=== PATIENT | female | born 2000 | race African-American/Black ===

== ENCOUNTER 2022-05-21 13:03 | Inpatient (IN) | payer OTHER ==
[~2022-05-21 13:03] MED LIST: Bupivacaine 0.25% HCL 30 ML VIAL ONE
[2022-05-21] MEDS ORDERED: hydrALAZINE 20 MG/ML VIAL ONE (14:06)
[2022-05-21] MEDS: Lactated Ringer's 1,000 ML IV SCH (14:25)
[2022-05-21] MEDS: Magnesium Sulfate 20 gm/500 ml 20 GM/500 ML BAG ONE ×2 (14:30→19:54)
[2022-05-21 14:38] LABS: Bilirubin Neg (Negative); Blood, Urine Negative (Negative); CAUTI Indications for Culture Pregnancy; Clarity Slightly Cloudy (Clear); Glucose, Urine (Dipstick) Normal (Negative); Ketone, Urine Negative (Negative); Leukocyte 500 (Negative); Nitrite Negative (Negative); Protein, Urine (Dipstick) 30 mg/dl (Neg-Trace); Urobilinogen Normal mg/dL (Less than 2); pH, Urine 6.5 (5.0-9.0)
[2022-05-21] MEDS: Labetalol HCl 100 MG/20 ML VIAL ONE ×2 (14:42→19:54)
[2022-05-21 14:44] VITALS: BMI 25.0
[2022-05-21] MEDS ORDERED: Labetalol HCl 100 MG/20 ML VIAL SLOW IVP PRN ×2 (14:45)
[2022-05-21] MEDS ORDERED: Calcium Gluc 4.6 MEQ/10 ML (100 MG/ML) SLOW IVP PRN (14:45)
[2022-05-21] MEDS ORDERED: Lorazepam 2 MG/ML VIAL SLOW IVP PRN (14:45)
[2022-05-21] MEDS ORDERED: Magnesium 2 GM/50 ML(in water) 4 GM in Premix Bag 1 BAG IVPB SCH ×2 (14:45→15:00)
[2022-05-21 14:53] LABS: Mean Corpuscular HGB CONC 34.8 g/dL (32.0-36.0); Mean Corpuscular Hemoglobin 28.1 pg (27.0-33.0); Mean Corpuscular Volume 80.8 fl (81.6-98.3); Mean Platelet Volume 11.9 fl (7.4-10.4); Platelet Count 191 10x3/uL (150-450); Red Blood Cell (RBC) Count 3.91 10x6/uL (3.90-5.03); White Blood Cell (WBC) Count 6.1 10x3/uL (3.5-10.5)
[2022-05-21 14:59] LABS: Urine Culture Reflex Yes Yes
[2022-05-21 15:04] LABS: Bacteria/HPF 2+ HPF (None Seen)
[2022-05-21 15:07] LABS: ALT (SGPT) 31 U/L (8-55); AST (SGOT) 41 U/L (5-34); Albumin 3.1 g/dL (3.5-5.0); Alkaline Phosphatase 85 U/L (40-100); Anion Gap 9 mmol/L (10-20); BUN (Urea Nitrogen) 5 mg/dL (7.0-18.7); Bilirubin, Total 0.3 mg/dL (0.2-1.2); Calc. Creatinine Clearance 144 mL/min (70-130); Calcium 8.2 mg/dL (7.8-10.44); Carbon Dioxide 22 mmol/L (22-29); Chloride 107 mmol/L (98-107); Estimated GFR 129; Globulin 4.8 g/dL (2.4-3.5); Glucose 60 mg/dL (70-105); Potassium 3.8 mmol/L (3.5-5.1); Protein, Total 7.9 g/dL (6.0-8.3); Sodium 134 mmol/L (136-145)
[2022-05-21] MEDS ORDERED: Magnesium Sulfate 20 gm/500 ml 20 GM/500 ML BAG IVPB SCH ×2 (15:15→16:45)
[2022-05-21] MEDS: Labetalol HCl 100 MG/20 ML VIAL SLOW IVP PRN ×2 (15:30→16:00)
[2022-05-21] MEDS ORDERED: cefTRIAXone\\ROCEPHIN 1 GM in Sodium Chloride 0.9% 100 ML IVPB SCH (16:30)
[2022-05-21] MEDS ORDERED: Ondansetron PF 4 MG/2 ML Vial ONE (16:33)
[2022-05-21] MEDS ORDERED: Ondansetron PF 4 MG/2 ML Vial IVP PRN (16:36)
[2022-05-21] MEDS: Betamet Acet/Betamet Na Ph 30 MG/5 ML VIAL IM SCH (16:57)
[2022-05-21 17:42] LABS: SARS-CoV-2 NAA Rapid Test Not Detected (NotDetected)
[2022-05-21 19:38] LABS: Fetal Membranes Rupture No Membranes Rupture (No Rupture)
[2022-05-21] MEDS: Acetaminophen 325 MG TAB PO PRN (20:24)
[2022-05-21] MEDS ORDERED: NIFEdipine XL 30 MG TAB PO SCH (20:45)
[2022-05-21] MEDS: Famotidine/PF 20 mg/2ml Vial SLOW IVP SCH (21:12)
[2022-05-21] MEDS: hydrALAZINE 20 MG/ML VIAL SLOW IVP PRN (22:10)
[2022-05-21] MEDS ORDERED: NIFEdipine 10 MG CAP PO SCH (23:45)
[2022-05-22] MEDS: Acetaminophen 325 MG TAB PO PRN ×4 (03:53→22:42)
[2022-05-22 05:12] LABS: #Monocytes 0.2 10x3/uL (0.0-1.1); #Neutrophils 6.6 10x3/uL (1.5-8.4); %Basophils 0.1 % (0.0-2.0); %Lymphocytes 8.9 % (18.0-47.0); %Neutrophils 88.5 % (40.0-75.0); Hemoglobin 10.8 g/dL (12.0-15.5); Mean Corpuscular HGB CONC 35.4 g/dL (32.0-36.0); Mean Platelet Volume 11.3 fl (7.4-10.4); Platelet Count 189 10x3/uL (150-450); Red Blood Cell (RBC) Count 3.86 10x6/uL (3.90-5.03); White Blood Cell (WBC) Count 7.4 10x3/uL (3.5-10.5)
[2022-05-22 05:22] LABS: ALT (SGPT) 30 U/L (8-55); AST (SGOT) 34 U/L (5-34); Alkaline Phosphatase 86 U/L (40-100); Anion Gap 12 mmol/L (10-20); BUN (Urea Nitrogen) 5 mg/dL (7.0-18.7); Bilirubin, Total 0.3 mg/dL (0.2-1.2); Calc. Creatinine Clearance 149 mL/min (70-130); Calcium 7.1 mg/dL (7.8-10.44); Carbon Dioxide 16 mmol/L (22-29); Chloride 103 mmol/L (98-107); Estimated GFR 130; Globulin 4.8 g/dL (2.4-3.5); Glucose 119 mg/dL (70-105); Potassium 3.9 mmol/L (3.5-5.1); Protein, Total 7.8 g/dL (6.0-8.3); Sodium 127 mmol/L (136-145)
[2022-05-22 05:25] LABS: Magnesium 5.5 mg/dL (1.7-2.2)
[2022-05-22] MEDS: NIFEdipine 10 MG CAP PO SCH ×2 (09:04→14:39)
[2022-05-22] MEDS: Famotidine/PF 20 mg/2ml Vial SLOW IVP SCH ×2 (09:51→22:39)
[2022-05-22] MEDS: Betamet Acet/Betamet Na Ph 30 MG/5 ML VIAL IM SCH (16:50)
[2022-05-22] MEDS: Lactated Ringer's 1,000 ML IV SCH ×2 (18:58→22:39)
[2022-05-22] MEDS ORDERED: NIFEdipine XL 30 MG TAB PO SCH (19:45)
[2022-05-22] MEDS: hydrALAZINE 20 MG/ML VIAL SLOW IVP PRN (22:33)
[2022-05-22] MEDS ORDERED: Zolpidem Tartrate 5 MG TAB PO PRN (23:10)
[2022-05-23 06:52] LABS: #Monocytes 0.4 10x3/uL (0.0-1.1); #Neutrophils 6.5 10x3/uL (1.5-8.4); %Lymphocytes 7.6 % (18.0-47.0); %Monocytes 5.8 % (0.0-10.0); %Neutrophils 85.9 % (40.0-75.0); Hemoglobin 11.8 g/dL (12.0-15.5); Mean Corpuscular HGB CONC 34.8 g/dL (32.0-36.0); Mean Corpuscular Volume 80.5 fl (81.6-98.3); Mean Platelet Volume 10.8 fl (7.4-10.4); Platelet Count 254 10x3/uL (150-450); RBC Distribution Width 13.3 % (11.5-14.5); Red Blood Cell (RBC) Count 4.21 10x6/uL (3.90-5.03); White Blood Cell (WBC) Count 7.6 10x3/uL (3.5-10.5)
[2022-05-23 07:43] LABS: AST (SGOT) 25 U/L (5-34); Anion Gap 15 mmol/L (10-20); BUN (Urea Nitrogen) 11 mg/dL (7.0-18.7); Calc. Creatinine Clearance 125 mL/min (70-130); Calcium 8.2 mg/dL (7.8-10.44); Carbon Dioxide 17 mmol/L (22-29); Chloride 107 mmol/L (98-107); Estimated GFR 117; Glucose 102 mg/dL (70-105); Potassium 4.8 mmol/L (3.5-5.1); Sodium 134 mmol/L (136-145)
[2022-05-23] MEDS: NIFEdipine XL 30 MG TAB PO SCH (09:11)
[2022-05-23] MEDS: Acetaminophen 325 MG TAB PO PRN (15:30)
[2022-05-23] MEDS: Lactated Ringer's 1,000 ML IV SCH (19:20)
[2022-05-23] MEDS: Famotidine/PF 20 mg/2ml Vial SLOW IVP SCH (19:20)
[2022-05-23] MEDS: Betamet Acet/Betamet Na Ph 30 MG/5 ML VIAL IM SCH (19:20)
[2022-05-24] MEDS: Famotidine/PF 20 mg/2ml Vial SLOW IVP SCH (03:35)
[2022-05-24] MEDS: Lactated Ringer's 1,000 ML IV SCH (03:35)
[2022-05-24] MEDS ORDERED: hydrALAZINE 20 MG/ML VIAL ONE (07:50)
[2022-05-24] MEDS ORDERED: HYDROcodone/Acetaminophen 5/325 mg Tablet PO PRN ×2 (08:53)
[2022-05-24] MEDS ORDERED: Ibuprofen 800 MG TAB PO PRN (08:53)
[2022-05-24] MEDS ORDERED: Lidocaine 1% (PF) 30 ML VIAL SC PRN (08:53)
[2022-05-24] MEDS ORDERED: Lorazepam 2 MG/ML VIAL SLOW IVP PRN (08:55)
[2022-05-24] MEDS ORDERED: Calcium Gluc 4.6 MEQ/10 ML (100 MG/ML) SLOW IVP PRN (08:55)
[2022-05-24] MEDS ORDERED: hydrALAZINE 20 MG/ML VIAL SLOW IVP PRN ×2 (08:55)
[2022-05-24] MEDS ORDERED: Labetalol HCl 100 MG/20 ML VIAL SLOW IVP PRN (08:55)
[2022-05-24] MEDS ORDERED: NS w/ Oxytocin 30 units 500 ML IV SCH ×2 (09:00)
[2022-05-24] MEDS ORDERED: Penicillin G Potassium 5 MILL.UNITS in Sodium Chloride 0.9% 100 ML IVPB SCH (09:00)
[2022-05-24] MEDS ORDERED: Misoprostol 100 MCG TAB ONE (09:26)
[2022-05-24] MEDS: NIFEdipine XL 30 MG TAB PO SCH (09:33)
[2022-05-24] MEDS: Magnesium Sulfate 20 gm/500 ml 20 GM/500 ML BAG ONE ×2 (09:42→18:42)
[2022-05-24] MEDS: Misoprostol 100 MCG TAB VAG SCH ×2 (09:42→19:54)
[2022-05-24 10:05] LABS: #Monocytes 0.5 10x3/uL (0.0-1.1); #Neutrophils 4.8 10x3/uL (1.5-8.4); %Basophils 0.2 % (0.0-2.0); %Lymphocytes 19.4 % (18.0-47.0); %Monocytes 6.9 % (0.0-10.0); %Neutrophils 73.2 % (40.0-75.0); Hemoglobin 13.3 g/dL (12.0-15.5); Mean Corpuscular HGB CONC 34.4 g/dL (32.0-36.0); Mean Corpuscular Hemoglobin 27.8 pg (27.0-33.0); Mean Corpuscular Volume 80.8 fl (81.6-98.3); Mean Platelet Volume 10.5 fl (7.4-10.4); Platelet Count 311 10x3/uL (150-450); RBC Distribution Width 13.2 % (11.5-14.5); Red Blood Cell (RBC) Count 4.79 10x6/uL (3.90-5.03); White Blood Cell (WBC) Count 6.5 10x3/uL (3.5-10.5)
[2022-05-24 10:22] LABS: ALT (SGPT) 26 U/L (8-55); AST (SGOT) 33 U/L (5-34); Albumin 3.5 g/dL (3.5-5.0); Alkaline Phosphatase 96 U/L (40-100); Anion Gap 12 mmol/L (10-20); BUN (Urea Nitrogen) 13 mg/dL (7.0-18.7); Bilirubin, Total 0.3 mg/dL (0.2-1.2); Calc. Creatinine Clearance 136 mL/min (70-130); Calcium 8.9 mg/dL (7.8-10.44); Carbon Dioxide 18 mmol/L (22-29); Chloride 106 mmol/L (98-107); Estimated GFR 127; Globulin 5.5 g/dL (2.4-3.5); Glucose 99 mg/dL (70-105); Potassium 4.4 mmol/L (3.5-5.1); Sodium 132 mmol/L (136-145)
[2022-05-24] MEDS: Labetalol HCl 100 MG/20 ML VIAL SLOW IVP PRN (14:08)
[2022-05-24] MEDS: Acetaminophen 325 MG TAB PO PRN (18:14)
[2022-05-24] MEDS ORDERED: Magnesium Sulfate 20 gm/500 ml 20 GM/500 ML BAG ONE (18:39)
[2022-05-24] MEDS ORDERED: Penicillin G Potassium 5 MILL.UNITS VIAL ONE (19:27)
[2022-05-25] MEDS: Misoprostol 100 MCG TAB VAG SCH (00:06)
[2022-05-25] MEDS: Penicillin G 2.5 MILL.units 2.5 MILL.UNITS in Premix Bag 1 BAG IVPB SCH ×3 (00:16→09:11)
[2022-05-25] MEDS: Acetaminophen 325 MG TAB PO PRN (00:27)
[2022-05-25] MEDS: Lactated Ringer's 1,000 ML IV SCH ×2 (02:37→22:47)
[2022-05-25] MEDS ORDERED: Magnesium Sulfate 20 gm/500 ml 20 GM/500 ML BAG ONE (04:45)
[2022-05-25] MEDS: NIFEdipine XL 30 MG TAB PO SCH (08:57)
[2022-05-25] MEDS: Labetalol HCl 100 MG/20 ML VIAL SLOW IVP PRN (09:12)
[2022-05-25] MEDS ORDERED: Fentanyl 2 mcg/Bup 0.1% Cadd 100 ML ONE (10:27)
[2022-05-25] MEDS ORDERED: Tranexamic Acid 1,000 MG/10 ML VIAL ONE (12:06)
[2022-05-25] MEDS ORDERED: Misoprostol 200 MCG TAB ONE (12:07)
[2022-05-25] MEDS ORDERED: Lactated Ringer's 500 ML IV PRN (12:24)
[2022-05-25] MEDS ORDERED: diphenhydrAMINE 50 MG/ML VIAL IVP PRN (12:24)
[2022-05-25] MEDS ORDERED: Promethazine HCl 25 MG/ML VIAL IM PRN (12:24)
[2022-05-25] MEDS ORDERED: Ondansetron PF 4 MG/2 ML Vial IVP PRN ×2 (12:24→12:59)
[2022-05-25] MEDS ORDERED: Moisturizing Cream (Eucerin) 113 GM JAR TOP PRN (12:24)
[2022-05-25] MEDS ORDERED: Naloxone HCl 0.4 mg/ml Vial IVP PRN ×2 (12:24)
[2022-05-25] MEDS ORDERED: ePHEDrine Sulfate 50 MG/10 ML VIAL SLOW IVP PRN (12:24)
[2022-05-25] MEDS ORDERED: Acetaminophen 325 MG TAB PO PRN (12:24)
[2022-05-25] MEDS ORDERED: Fentanyl 2 mcg/Bupivacaine 0.1% Cassette 100 ML EPIDURAL SCH (12:30)
[2022-05-25] MEDS ORDERED: Communication Order-Pharmacy FS SCH (12:30)
[2022-05-25] MEDS ORDERED: Bisacodyl 10 MG SUPP PR PRN ×2 (12:59→22:06)
[2022-05-25] MEDS ORDERED: Benzocaine-Menthol 82.5 ML CAN TOP PRN ×2 (12:59→22:06)
[2022-05-25] MEDS ORDERED: diphenhydrAMINE 25 MG CAP PO PRN (12:59)
[2022-05-25] MEDS ORDERED: Boostrix 0.5 ML (Tdap) VIAL (>/=7 yrs of age) IM ONE (12:59)
[2022-05-25] MEDS ORDERED: Lanolin Ointment 7 GM TUBE TOP PRN (12:59)
[2022-05-25] MEDS ORDERED: Preparation H Ointment 28 GM TUBE PR PRN (12:59)
[2022-05-25] MEDS ORDERED: hydrALAZINE 20 MG/ML VIAL SLOW IVP PRN ×2 (12:59→22:06)
[2022-05-25] MEDS ORDERED: Milk Of Magnesia 30 ML UDCUP PO PRN ×2 (12:59→22:06)
[2022-05-25] MEDS ORDERED: HYDROcodone/Acetaminophen 5/325 mg Tablet PO PRN ×2 (12:59)
[2022-05-25] MEDS ORDERED: Tranexamic Acid 1,000 MG in Sodium Chloride 0.9% 250 ML 250 ML IVPB SCH (13:00)
[2022-05-25] MEDS ORDERED: Magnesium Sulfate 20 gm/500 ml 20 GM/500 ML BAG IVPB SCH (13:15)
[2022-05-25] MEDS ORDERED: Ibuprofen 800 MG TAB PO SCH (14:00)
[2022-05-25] MEDS ORDERED: Ferrous Sulfate 325 MG TAB PO SCH ×2 (17:00→22:15)
[2022-05-25] MEDS ORDERED: Docusate 100 MG CAP PO SCH ×2 (21:00→22:15)
[2022-05-25] MEDS: Ibuprofen 800 MG TAB PO SCH (22:36)
[2022-05-26] MEDS ORDERED: Ferrous Sulfate 325 MG TAB PO SCH (08:00)
[2022-05-26] MEDS: NIFEdipine XL 30 MG TAB PO SCH (08:01)
[2022-05-26] MEDS: Ibuprofen 800 MG TAB PO SCH ×3 (08:02→17:33)
[2022-05-26] MEDS: Lactated Ringer's 1,000 ML IV SCH ×2 (08:11→15:59)
[2022-05-26] MEDS ORDERED: Docusate 100 MG CAP PO SCH (09:00)
[2022-05-26] MEDS ORDERED: Prenatal Vitamin 1 TAB PO SCH ×2 (09:00)
[2022-05-26] MEDS ORDERED: NIFEdipine XL 30 MG TAB PO SCH (10:00)
[2022-05-26] MEDS ORDERED: diphenhydrAMINE 25 MG CAP PO PRN (15:17)
[2022-05-26] MEDS ORDERED: Milk Of Magnesia 30 ML UDCUP PO PRN (15:17)
[2022-05-26] MEDS ORDERED: hydrALAZINE 20 MG/ML VIAL SLOW IVP PRN (15:17)
[2022-05-26] MEDS ORDERED: HYDROcodone/Acetaminophen 5/325 mg Tablet PO PRN ×2 (15:17)
[2022-05-26] MEDS ORDERED: Preparation H Ointment 28 GM TUBE PR PRN (15:17)
[2022-05-26] MEDS ORDERED: Promethazine HCl 25 MG/ML VIAL IM PRN (15:17)
[2022-05-26] MEDS ORDERED: Ondansetron PF 4 MG/2 ML Vial IVP PRN (15:17)
[2022-05-26] MEDS ORDERED: Boostrix 0.5 ML (Tdap) VIAL (>/=7 yrs of age) IM ONE (15:17)
[2022-05-26] MEDS ORDERED: Bisacodyl 10 MG SUPP PR PRN (15:17)
[2022-05-26] MEDS: Ferrous Sulfate 325 MG TAB PO SCH (15:56)
[2022-05-26] MEDS: Misoprostol 100 MCG TAB VAG SCH ×2 (15:57→15:58)
[2022-05-26] MEDS: Betamet Acet/Betamet Na Ph 30 MG/5 ML VIAL IM SCH (15:57)
[2022-05-26] MEDS: Famotidine/PF 20 mg/2ml Vial SLOW IVP SCH (15:57)
[2022-05-26] MEDS: Penicillin G 2.5 MILL.units 2.5 MILL.UNITS in Premix Bag 1 BAG IVPB SCH ×2 (15:58→15:59)
[2022-05-26] MEDS: Docusate 100 MG CAP PO SCH (22:57)
[2022-05-27] MEDS: Ibuprofen 800 MG TAB PO SCH ×2 (00:24→08:06)
[2022-05-27 08:02] VITALS: TEMP 98.3
[2022-05-27] MEDS: Ferrous Sulfate 325 MG TAB PO SCH (08:02)
[2022-05-27] MEDS: Docusate 100 MG CAP PO SCH (08:05)
[2022-05-27] MEDS ORDERED: NIFEdipine XL 60 MG TAB PO SCH (09:00)
[2022-05-27] MEDS ORDERED: Prenatal Vitamin 1 TAB PO SCH (09:00)
[2022-05-27 12:08] VITALS: BP 133/77
== END 2022-05-27 12:10 | disposition home or self-care (01) | DRG 807 ==
LOC: CSHLD/OP 13:03 → CSHLD 16:58 → CSHPP 05-26 14:48
PROVIDERS: ADMIT Obstetrics & Gynecology; ATTEND Obstetrics & Gynecology
PROC: 3E0334Z Introduction of Serum, Toxoid and Vaccine into Peripheral Vein, Percutaneous Approach (ICD-10-PCS; principal; 2022-05-25)
PROC: 10E0XZZ Delivery of Products of Conception, External Approach (ICD-10-PCS; 2022-05-25)
PROC: 10907ZC Drainage of Amniotic Fluid, Therapeutic from Products of Conception, Via Natural or Artificial Opening (ICD-10-PCS; 2022-05-25)
PROC: 3E0P7VZ Introduction of Hormone into Female Reproductive, Via Natural or Artificial Opening (ICD-10-PCS; 2022-05-25)
DX: O14.14 Severe pre-eclampsia complicating childbirth (principal); Z37.0 Single live birth; O26.893 Other specified pregnancy related conditions, third trimester; Z67.21 Type B blood, Rh negative; Z3A.30 30 weeks gestation of pregnancy; Z20.822 Contact with and (suspected) exposure to COVID-19; D56.3 Thalassemia minor; O99.02 Anemia complicating childbirth; O36.5930 Maternal care for other known or suspected poor fetal growth, third trimester, not applicable or unspecified; O69.81X0 Labor and delivery complicated by cord around neck, without compression, not applicable or unspecified; O72.1 Other immediate postpartum hemorrhage
CPT/HCPCS: 36415; 51702; 76819; 76856; 80048; 80053; 81001; 82570; 83735; 84112; 84156; 84450; 84550; 85025; 85027; 86850; 86870; 86900; 86901; 87086; 90384; 96372; 99285; J0360; J0696; J0702; J2405; J2540; J2590; J3475; J3490; J7120; S0020; S0028; U0002